=== PATIENT | female | born 1940 | race African-American/Black ===

== ENCOUNTER 2016-07-01 11:43 | Emergency (ER) | payer OTHER ==
[~2016-07-01] VITALS: Ht 162.6 cm; Wt 56.7 kg
[~2016-07-01 11:43] MED LIST: ACET325T16 PO; AMLO5TAB2 PO; ASPI325T4 PO; BENZ1LOZ48 PO; BISA5TAB4 PO; CLOP75TA PO; DOCU-27 PO; Nicotine TD; OXYC1TAB9 PO
[2016-07-01 13:31] VITALS: BP 168/88
--- NOTE | 2016-07-01 13:39 | PHYS DOC ---
Past Medical History Past Medical History: No Pertinent History Past Surgical History: Other Additional Past Surgical Histo: L LEG VARICOSE VEIN Alcohol Use: Occasionally Drug Use: None Adult General Chief Complaint Chief Complaint: SYNCOPE HPI HPI Patient is a 75 year old female who presents with complaint of scalp laceration. Patient states that she suffered a scalp laceration "sometime last week." Patient states that she was in her bathroom and suddenly "blacked out" and fell in her bathroom hitting the back of her head on the bathtub. Patient denies any significant loss of consciousness. The patient's son was with her at the time and responded to her immediately after. She states that she was unable to seek medical attention at the time this occurred because she did not have a car and could not drive herself. The patient came to the emergency department today to have her laceration evaluated to make sure that "it was not infected" as she states that it is still sore at this site. Patient otherwise denies any significant symptoms. Patient denies headaches, loss of vision, difficulty with speech or swallowing, chest pain, shortness of breath, or further episodes of lightheadedness. The patient currently does not have a primary physician. Patient has history of peripheral vascular disease and was recently admitted to the hospital for surgery on her left lower extremity. Patient states that she follows with Dr. Rock of vascular surgery and Dr. Woods of cardiology. The patient states that she does not have any heart problems and she does not want any blood drawn at this time. Review of Systems Review of Systems Constitutional: Denies fever or chills [] Eyes: Denies change in visual acuity, redness, or eye pain [] HENT: Denies nasal congestion or sore throat [] Respiratory: Denies cough or shortness of breath [] Cardiovascular: Syncopal episode, denies chest pain or edema [] GI: Denies abdominal pain, nausea, vomiting, bloody stools or diarrhea [] : Denies dysuria or hematuria [] Musculoskeletal: Denies back pain or joint pain [] Integument: Scalp laceration [] Neurologic: Denies headache, focal weakness or sensory changes [] Endocrine: Denies polyuria or polydipsia [] Allergies Allergies Allergies Coded Allergies Type Severity Reaction Last Updated Verified ampicillin Allergy Intermediate ITCH 08/09/15 Yes Physical Exam Physical Exam Constitutional: Alert, afebrile, no acute distress. [] HENT: Normocephalic, 2 cm subacute scalp laceration with no active bleeding, granulation tissue present, bilateral external ears normal, oropharynx moist, no oral exudates, nose normal. [] Eyes: PERRLA, EOMI, conjunctiva normal, no discharge. [] Neck: Normal range of motion, no tenderness, supple, no stridor. [] Cardiovascular:Heart rate regular rhythm, no murmur [] Lungs & Thorax: Bilateral breath sounds clear to auscultation [] Abdomen: Bowel sounds normal, soft, no tenderness, no masses, no pulsatile masses. [] Skin: Warm, dry, no erythema, no rash. [] Back: No tenderness, no CVA tenderness. [] Extremities: No tenderness, no cyanosis, no clubbing, ROM intact, no edema. [] Neurologic: Alert and oriented X 3, normal motor function, normal sensory function, no focal deficits noted. [] Current Patient Data Vital Signs Vital Signs Date Time Temp Pulse Resp B/P Pulse Ox O2 Delivery O2 Flow Rate FiO2 07/01/16 12:20 97.6 78 16 147/77 96 Room Air 97.6 EKG EKG Interpreted by me: Heart rate 87, sinus rhythm, multiple PACs, left axis deviation, no acute ST/T-wave abnormalities present [] Radiology/Procedures Radiology/Procedures Not performed [] Course & Med Decision Making Course & Med Decision Making Pertinent Labs and Imaging studies reviewed. (See chart for details) The patient's scalp laceration is beyond the window of repair with tyler and/ or sutures. The patient's laceration appears to be healing without any evidence of infection and I recommended that the patient not receive any further interventions for wound repair at this time due to increased risk of developing infection to the area. Advised continued use of soap and water to clean the area. I did voice concern however over the patient's syncopal episode as the patient does not report any history of similar episodes. The patient stated that she does not have any heart problems and she does not want any further testing at this time. The patient stated that she would agree to follow-up with Dr. Woods which I recommended to do so in the next 2-3 days. Advised return to emergency department for any worsening symptoms or any further episodes of syncope. Patient voiced understanding and in agreement with treatment plan. Dragon Disclaimer Dragon Disclaimer This electronic medical record was generated, in whole or in part, using a voice recognition dictation system. Departure Departure Impression: Primary Impression: Syncope Additional Impression: Occipital scalp laceration Disposition: 01 HOME, SELF-CARE Condition: STABLE Referrals: NO PCP (PCP) ROBERTO WOODS MD Patient Instructions: Laceration Care, Adult, [id number], Syncope Additional Instructions: Your scalp laceration is healing on its own. Due to the laceration happening several days ago, it is not recommended to put stitches or tyler in your scalp to close the wound as this may increase chance of infection. Continue to clean the area with soap and water and allow the laceration heal on its own. You will need to follow-up with Dr. Woods in the next 2-3 days for further evaluation in regard to your syncopal episode as you have chosen not to receive any further testing in the emergency department. Return immediately to the emergency department if you experience any further episodes of lightheadedness or passing out. Problem Qualifiers Primary Impression: Syncope Syncope type: unspecified Qualified Code: R55 - Syncope and collapse Additional Impression: Occipital scalp laceration Encounter type: initial encounter Qualified Code: S01.01XA - Laceration without foreign body of scalp, initial encounter VIVIAN LÓPEZ MD Jul 01, 2016 13:39
== END 2016-07-01 13:43 | disposition home or self-care (01) ==
LOC: ER 11:43
DX: S01.01XA Laceration without foreign body of scalp, initial encounter (principal); R55 Syncope and collapse; I73.9 Peripheral vascular disease, unspecified; Z88.1 Allergy status to other antibiotic agents; W19.XXXA Unspecified fall, initial encounter; Y93.89 Activity, other specified; Y92.89 Other specified places as the place of occurrence of the external cause; Y99.8 Other external cause status
CPT/HCPCS: 12001; 99284-25

== ENCOUNTER 2016-09-20 08:39 | Outpatient (CLI) | payer OTHER ==
[2016-09-20] VITALS (10 sets, daily range): BP systolic 116–175; BP diastolic 72–104
[~2016-09-20] VITALS: Ht 161.3 cm; Wt 56.7 kg
[~2016-09-20 08:39] MED LIST changes: -ASPI325T4 PO; +ASPI325T8 PO; +DOCU-109 PO; -DOCU-27 PO
[2016-09-20 09:30] LABS: BASO # 0.1 x10^3/uL (0.0-0.2); BASO % 1 % (0-3); EOS % 2 % (0-3); HEMATOCRIT 40.2 % (36.0-47.0); HEMOGLOBIN 13.6 g/dL (12.0-15.5); LYMPH # 2.3 x10^3/uL (1.0-4.8); LYMPH % 34 % (24-48); MEAN CORPUSCULAR HEMOGLOBIN 28 pg (25-35); MEAN CORPUSCULAR HGB CONC 34 g/dL (31-37); MEAN CORPUSCULAR VOLUME 82 fL (79-100); MONO % 9 % (0-9); NEUT % 54 % (31-73); PLATELET COUNT 341 x10^3/uL (140-400); RED BLOOD COUNT 4.89 x10^6/uL (3.50-5.40); RED CELL DISTRIBUTION WIDTH 16.2 % (11.5-14.5); WHITE BLOOD COUNT 6.7 x10^3/uL (4.0-11.0)
[2016-09-20] MEDS ORDERED: IODIXANOL 320MG/ML 50ML VIAL. ONE (09:34)
[2016-09-20] MEDS ORDERED: IOHEXOL 300 MG/ML 100ML VIAL. ONE (09:34)
[2016-09-20] MEDS ORDERED: LIDOCAINE 1% / SOD BICARB 8.4% 20 ML VIAL. IJ ONE ×2 (09:34→11:45)
[2016-09-20] MEDS ORDERED: IODIXANOL 320 MG/ML 100 ML VIAL. ONE (09:34)
[2016-09-20 10:03] LABS: PROTHROMBIN TIME PATIENT 12.9 SEC (11.7-14.0)
[2016-09-20] MEDS ORDERED: MIDAZOLAM HCL/PF 2 MG/2 ML VIAL. ONE ×2 (10:03→10:41)
[2016-09-20] MEDS ORDERED: fentaNYL PF VIAL 100 MCG/2 ML VIAL ONE ×2 (10:03→10:41)
[2016-09-20 10:04] LABS: CALCIUM 9.3 mg/dL (8.5-10.1); CREATININE 0.7 mg/dL (0.6-1.0); GFR 98.2; POTASSIUM 3.2 mmol/L (3.5-5.1)
[2016-09-20] MEDS ORDERED: HEPARIN for IV BOLUS 10,000 UNIT/10 ML VIAL. ONE (10:41)
[2016-09-20] MEDS ORDERED: MIDAZOLAM HCL/PF 2 MG/2 ML VIAL. IV ONE (11:45)
[2016-09-20] MEDS ORDERED: IOHEXOL 300 MG/ML 100ML VIAL. IART ONE (11:45)
[2016-09-20] MEDS ORDERED: HEPARIN for IV BOLUS 10,000 UNIT/10 ML VIAL. IV ONE (11:45)
[2016-09-20] MEDS ORDERED: fentaNYL PF VIAL 100 MCG/2 ML VIAL IV ONE (11:45)
[2016-09-20] MEDS ORDERED: IODIXANOL 320 MG/ML 100 ML VIAL. IART ONE (11:45)
[2016-09-20] MEDS ORDERED: CONTRAST GIVEN MC PRN (12:00)
[2016-09-20] MEDS ORDERED: CLOPIDOGREL BISULFATE 75 MG TABLET ONE (12:32)
--- NOTE | 2016-09-20 12:39 | PDOC ---
MODERATE SEDATION ASSESSMENT RISKS/ALTERNATIVES Risks/Alternatives Risks and alternatives of this type of sedation and procedure discussed with: RISK/ALTERNATIVES: Patient H & P ON CHART H & P H & P on chart and reviewed for co-morbid conditions and appropriate labs. H&P ON CHART: Yes STATUS PREG STATUS ASSESSED: N/A MEDS/ALLERGIES REVIEWED Meds/Allergies Reviewed Medications and Allergies including time and route of recently administered narcotics and sedatives. MEDS/ALLERGIES REVIEWED: Yes ASA RATING ASA RATING: III AIRWAY ASSESSMENT Airway Assessment Airway patency, oral function limitations, presence of caps, crowns, dentures, partials, and ability to extend neck assessed. AIRWAY ASSESSMENT: Yes MALLAMPATI SCORE MALLAMPATI SCORE: II PRE-SEDATION ASSESSMENT PRE-SEDATION ASSESSMENT: Yes KAYLEE BRODERICK MD September 20, 2016 12:39
[2016-09-20] MEDS ORDERED: CLOPIDOGREL BISULFATE 75 MG TABLET PO ONE (12:45)
--- NOTE | 2016-09-20 12:52 | PDOC1 ---
History and Physical Date of Procedure Date of Admission 09/20/16 Procedure Procedure Left lower extremity angio +/- intervention Indication Indication 76 YO non-compliant hypertensive smoker with CAD and severe PAD. Surveillance duplex Doppler (outside) revealed recurrent high grade stenosis at distal anastomosis of left CELEBRITY MANAGER-peroneal bypass graft. Diagnostic angio +/- intervention has been requested by vascular surgery. Past Medical History Past Medical History See Nursing Pre Procedure PMH Past Surgical History Past Surgical History See Nursing Pre Procedure PSH Current Medications Current Medications Current Medications Iodixanol (Visipaque 320) 50 ml STK-MED ONCE .ROUTE ; Start 09/20/16 at 09:34; Stop 09/20/16 at 09:35; Status DC Iohexol (Omnipaque 300 Mg/ml) 100 ml STK-MED ONCE .ROUTE ; Start 09/20/16 at 09: 34; Stop 09/20/16 at 09:35; Status DC Lidocaine/Sodium Bicarbonate (Buffered Lidocaine 1%) 20 ml STK-MED ONCE IJ ; Start 09/20/16 at 09:34; Stop 09/20/16 at 09:35; Status DC Iodixanol (Visipaque 320) 100 ml STK-MED ONCE .ROUTE ; Start 09/20/16 at 09:34; Stop 09/20/16 at 09:35; Status DC Fentanyl Citrate (Fentanyl 2ml Vial) 100 mcg STK-MED ONCE .ROUTE ; Start at 10:03; Stop 09/20/16 at 10:04; Status DC Midazolam HCl (Versed) 2 mg STK-MED ONCE .ROUTE ; Start 09/20/16 at 10:03; Stop 09/20/16 at 10:04; Status DC Fentanyl Citrate (Fentanyl 2ml Vial) 100 mcg STK-MED ONCE .ROUTE ; Start at 10:41; Stop 09/20/16 at 10:42; Status DC Midazolam HCl (Versed) 2 mg STK-MED ONCE .ROUTE ; Start 09/20/16 at 10:41; Stop 09/20/16 at 10:42; Status DC Heparin Sodium (Porcine) (Heparin Sodium) 10,000 unit STK-MED ONCE .ROUTE ; Start 09/20/16 at 10:41; Stop 09/20/16 at 10:42; Status DC Heparin Sodium/ Sodium Chloride 1,000 unit 1X ONCE IART Last administered on 12:04; Start 09/20/16 at 11:45; Stop 09/20/16 at 11:51; Status DC Heparin Sodium/ Sodium Chloride 1,000 unit 1X ONCE IART Last administered on 12:04; Start 09/20/16 at 11:45; Stop 09/20/16 at 11:51; Status DC Lidocaine/Sodium Bicarbonate (Buffered Lidocaine 1%) 7 ml 1X ONCE IJ Last administered on 09/20/16 12:05; Start 09/20/16 at 11:45; Stop 09/20/16 at 11:51 ; Status DC Midazolam HCl (Versed) 4 mg 1X ONCE IV Last administered on 09/20/16 12:06; Start 09/20/16 at 11:45; Stop 09/20/16 at 11:51; Status DC Fentanyl Citrate (Fentanyl 2ml Vial) 200 mcg 1X ONCE IV Last administered on 12:05; Start 09/20/16 at 11:45; Stop 09/20/16 at 11:51; Status DC Iohexol (Omnipaque 300 Mg/ml) 100 ml 1X ONCE IART Last administered on 12:05; Start 09/20/16 at 11:45; Stop 09/20/16 at 11:51; Status DC Iodixanol (Visipaque 320) 100 ml 1X ONCE IART Last administered on 09/20/16 12:04; Start 09/20/16 at 11:45; Stop 09/20/16 at 11:51; Status DC Heparin Sodium (Porcine) (Heparin Sodium) 5,000 unit 1X ONCE IV Last administered on 09/20/16 12:06; Start 09/20/16 at 11:45; Stop 09/20/16 at 11:51 ; Status DC Info (Do NOT chart on this entry -- for MONITORING) 1 each PRN DAILY PRN MC SEE COMMENTS; Start 09/20/16 at 12:00; Stop 09/22/16 at 11:59 Clopidogrel Bisulfate (Plavix) 75 mg STK-MED ONCE .ROUTE ; Start 09/20/16 at 12: 32; Stop 09/20/16 at 12:33; Status DC Active Scripts Active Allergies Allergies: Coded Allergies: ampicillin (Verified Allergy, Intermediate, ITCH, 08/09/15) Physical Exam Vital Signs Vital Signs Date Time Temp Pulse Resp B/P (MAP) Pulse Ox O2 Delivery O2 Flow Rate FiO2 09/20/16 12:07 65 14 99 Nasal Cannula 2.0 Ventilator 09/20/16 09:36 98.3 116/86 (96) 98.3 Lungs: Clear to auscultation Heart: Regular rate Psych/Mental Status: Mental status NL Vascular +/- right CELEBRITY MANAGER pulse. 1+ pulse within left CELEBRITY MANAGER-peroneal graft. Nonpalpable left foot/ankle pulses. Diagnostic Data/Imaging Images PMC arteriogram with left leg arterial intervention from 03/13/16 reviewed. Assessment Assessment 76 YO noncompliant hypertensive smoker with CAD and with known severe PAD, s/p left CELEBRITY MANAGER-peroneal bypass graft. Graft distal anastomosis was angioplastied 03/13/16, with good angio improvement. Graft surveillance duplex Doppler (outside study) revealed recurrent high grade distal graft anastomosis stenosis---of note Sonia continues to smoke and refuses to take Plavix. Problems: Plan Plan Diagnostic selective left lower extremity angio with probable repeat angioplasty at distal graft anastomosis. If recurrent anastomotic stricture is confirmed, will try cutting BIOMEDICAL SERVICE ENGINEER + prolonged Chocolate BIOMEDICAL SERVICE ENGINEER combination. KAYLEE BRODERICK MD September 20, 2016 12:52
--- NOTE | 2016-09-20 13:02 | PDOC ---
Exam Cutter Barrel Drum Cutter Barrel Drum Tracey Forward Air Controller/Air Officer Forward Air Controller/Air Officer B Cates Pre-Procedure Diagnosis Pre-Procedure Diagnosis 76 YO noncompliant hypertensive smoker with CAD and known severe, limb threatening left lower extremity PAD. She is s/p left LABOR DELIVERY SPECIALIST-peroneal bypass graft , with subsequent distal anastomotic SAP BUSINESS OBJECTS CONSULTANT in February of last year. By outside surveillance duplex Doppler suggests recurrent high grade distal anastomotic stricture. Diagnostic angio +/- intervention has been requested by vascular surgery. Post-Procedure Diagnosis Post-Procedure Diagnosis Severe to critical distal recurrent stricture at distal anastomosis of left LABOR DELIVERY SPECIALIST- peroneal bypass graft. 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 Procedure Performed Procedure Performed Selective left lower extremity angio. SAP BUSINESS OBJECTS CONSULTANT recurrent severe stricture at distal anastomosis of left LABOR DELIVERY SPECIALIST-peroneal bypass graft. Type of Anesthesia Type of Anesthesia Local + Mod sedation. Estimated Blood Loss EBL: 50 cc Condition of Patient Condition of Patient Stable. No apparent complication. Disposition Disposition Home from [facility] post recovery, if no problems. F/u with referring MD. Prior to discharge stress importance of smoking cessation and compliance with prescribed medications, including Plavix. Full report to follow. KAYLEE BRODERICK MD September 20, 2016 13:02
[2016-09-20] MEDS ORDERED: CLOP75TA PO (15:04)
--- NOTE | 2016-09-20 17:22 | RAD ---
Selective left lower extremity arteriogram LIFESTYLE DIRECTOR distal anastomosis of left common femoral artery-peroneal artery bypass graft Indication: 76-year-old noncompliant, hypertensive smoker with CAD and with known severe PAD, and with recurrent severe left foot pain. She is status post left common femoral artery-peroneal bypass graft, with subsequent LIFESTYLE DIRECTOR of distal graft anastomosis in February of last year. Outside surveillance duplex Doppler ultrasound revealed recurrent high-grade distal anastomotic stricture. Diagnostic arteriogram, with possible intervention, has been requested by vascular surgery. Fluoroscopy time: 23.6 minutes Kerma-area Product: 300 Gycm2 Contrast material: 20 cc Omnipaque 300. 71 cc Visipaque 320. Anesthesia: 105 minutes moderate sedation was provided utilizing a total of 3 mg Versed and 150 mcg fentanyl, IV. The patient was appropriately monitored by a qualified independent observer throughout the time of moderate sedation. Consent: The procedure was explained in its entirety to the patient and/or the patient's designated retail customer service representative by a member of the treatment team. This included a discussion of risks and benefits and commonly accepted alternatives to the procedure, as well as expected consequences of no treatment at all. Discussion of risks included, but was not limited to, those that are most frequent and those that are rare, but possibly severe or life-threatening, as well as the possibility of unforeseen complications. Sterility: All elements of maximal sterile barrier technique, hand hygiene, skin preparation, and, if ultrasound was used, sterile ultrasound technique were followed. Procedure: Informed consent was obtained from the patient. She was placed supine on the angiography table. Preliminary ultrasound examination of right groin revealed patency of right common femoral artery, which was documented with a single hard copy ultrasound image. Right groin was then prepped and draped in the usual sterile fashion, utilizing all elements of maximal sterile barrier technique, as described above. Moderate sedation was provided with IV Versed and fentanyl. Using aseptic technique, local anesthesia, direct sterile ultrasound guidance, and the micropuncture system, a 5 Pakistani right common femoral artery sheath was successfully introduced. Oblique pelvis injection: A 4 Pakistani angled glide catheter was inserted through the 5 Pakistani right groin sheath and was advanced into infrarenal abdominal aorta over a Glidewire. The angled glide catheter was then exchanged for a 5 Pakistani Omni Flush catheter, which was positioned within terminal aorta, just above bifurcation. Omnipaque 300 was injected and DSA images were obtained over pelvis in the COLE projection. Findings: Visualized distal abdominal aorta shows atherosclerotic plaquing and ectasia, without aneurysmal dilatation. Aortic bifurcation is patent. Left common iliac and external iliac arteries show scattered eccentric plaques, without hemodynamically significant stenosis. The oblique pelvis study suggested severe right external iliac occlusive disease. However, repeat imaging of right hemipelvis at the conclusion of this study revealed only moderate mid right external iliac artery stenosis, without hemodynamically significant right iliac inflow lesion. Selective left lower extremity arteriogram: The Omni Flush catheter was advanced across aortic bifurcation over a Glidewire into contralateral left common femoral artery. Dilute Visipaque was injected and DSA images were obtained over left groin in the DASHA projection. The Omni Flush catheter was then exchanged for a 4 Pakistani angled glide catheter, which was successfully advanced over a Glidewire into proximal segment of the patient's left common femoral-peroneal bypass graft. Dilute Visipaque was injected through the angled glide catheter, and DSA images were obtained from proximal thigh through foot/ankle. Findings: Postoperative left common femoral artery and left deep femoral arteries appear widely patent. Left superficial femoral artery is occluded at its origin. There is sluggish antegrade flow through small caliber left common femoral artery-peroneal bypass graft, which is patent throughout its length, apart from focal, recurrent, critical stenosis at the distal graft anastomosis. [place] peroneal artery is patent from distal graft anastomosis through mid calf, where it is occluded. Multiple small serpiginous distal calf collateral vessels provide eventual reconstitution of small distal anterior tibial artery through dorsalis pedis artery at hindfoot, as well as some collateral perfusion to plantar distribution at calcaneus. LIFESTYLE DIRECTOR severe recurrent stricture at distal graft anastomosis: The 4 Pakistani angled glide catheter, previously positioned within proximal segment of the left common femoral artery-peroneal bypass graft was removed over a [employer] advantage guidewire. The 5 Pakistani right groin sheath was then exchanged over the advantage wire, for a 6 Pakistani Joe 2 sheath, which was advanced across aortic bifurcation into contralateral left common femoral artery. 5 cm heparin was then given bolus IV. The 4 Pakistani angled glide catheter was then reintroduced through the Ancel sheath over the advantage wire into proximal segment of the bypass graft. The angle glide catheter was then exchanged over a [employer] slam microguidewire for a 0.018 inch quick cross catheter. The grand slam wire/quick cross catheter were then easily advanced through the bypass graft to a level immediately above the distal anastomotic stricture. The grand slam microguidewire was then exchanged for a [employer] GT microguidewire. The quick cross catheter/GT guidewire combination was successfully advanced through the severe distal anastomotic stricture into mid left popliteal artery. Satisfactory intraluminal position of the quick cross catheter within peroneal artery was confirmed with a contrast injection. The quick cross catheter was then exchanged over a long grand slam microguidewire for a 2 mm x 10 mm cutting LIFESTYLE DIRECTOR balloon which was carefully positioned across the distal anastomotic stricture utilizing magnification fluoroscopic guidance and road mapping technique. The 2 mm cutting LIFESTYLE DIRECTOR balloon was then prepped slowly inflated to a peak pressure of 12 avis. The cutting balloon was then slowly deflated, and was exchanged over the grand slam wire for a 2.5 mm x 40 mm chocolate LIFESTYLE DIRECTOR balloon, which was utilized to perform prolonged (4 minutes) balloon angioplasty of the distal anastomotic stricture to a peak pressure of 9 avis. The chocolate LIFESTYLE DIRECTOR balloon was then deflated and was exchanged over the grand slam wire for the 0.018 inch quick cross catheter, which was positioned within distal segment of the graft. Dilute Visipaque was injected through the quick cross catheter and completion DSA images were obtained. Those images revealed brisk antegrade flow across distal graft anastomosis, which is significantly improved in caliber, without complicating dissection or thrombosis. Repeat right iliac artery imaging: The 6 Pakistani Joe 2 sheath was withdrawn into ipsilateral right common iliac artery. Visipaque was injected and pull-back DSA images were obtained over right common and external iliac arteries. Those images revealed moderate mid right external iliac artery stenosis, without flow-limiting common iliac or external iliac artery lesion. Therefore, the apparent severe right external iliac artery occlusive disease seen on the oblique pelvis injection was considered artifactual in nature, likely related to vasospasm about the 5 Pakistani Omni Flush catheter. Patient tolerated the procedure well without apparent complication. Hemostasis was achieved at the right groin puncture site utilizing the Mynx closure system. Impression: Selective left lower extremity arteriogram revealed widely patent left common femoral artery-peroneal bypass graft, apart from recurrent, focal, severe to critical stricture at distal graft anastomosis, for which successful, uneventful cutting balloon angioplasty was performed, as described.
[2016-09-21] MEDS ORDERED: CLOPIDOGREL BISULFATE 75 MG TABLET PO SCH (08:00)
== END 2016-09-20 15:50 | disposition home or self-care (01) ==
LOC: INTRAD 08:39
PROVIDERS: ATTEND Specialist
DX: T82.858A Stenosis of other vascular prosthetic devices, implants and grafts, initial encounter (principal); Y83.8 Other surgical procedures as the cause of abnormal reaction of the patient, or of later complication, without mention of misadventure at the time of the procedure; I73.9 Peripheral vascular disease, unspecified; I25.10 Atherosclerotic heart disease of native coronary artery without angina pectoris; I10 Essential (primary) hypertension; M19.90 Unspecified osteoarthritis, unspecified site; Z72.89 Other problems related to lifestyle; Z88.0 Allergy status to penicillin
CPT/HCPCS: 36415; 37228; 75710; 75774; 76937; 80048; 85027; 85610; 85730; C1713; C1725; C1758; C1760; C1769; C1892; C1894; J2250; J3010; Q9967; 99152; 99153; G0269